=== PATIENT | male | born 1960 ===

== ENCOUNTER 2023-06-17 09:42 | Emergency (ER) | payer MEDICAID, SELFPAY ==
[2023-06-17 09:54] VITALS: BP 117/75; PULSE 85; RESP 14; TEMP 36.9; O2SAT 98; BMI 23.7
--- NOTE | 2023-06-17 10:08 | PC.NURSE ---
patient has photo of medications however unable to see name of prescriptions. unable to state which medications he needs refilled.
--- NOTE | 2023-06-17 10:17 | ED_ITS ---
HPI - General Adult General Chief complaint: General Medical Stated complaint: medication Time Seen by Provider: 06/17/23 10:17 Source: patient Mode of arrival: ambulatory Limitations: no limitations History of Present Illness HPI narrative: Patient is a 62-year-old male with reported history of dementia presenting to the emergency department requesting refill of venlafaxine. He states that he moved to this area from [place] 1 month ago with his son. He states that he still has 3 refills left of this medication but is unsure how to refill this as he was previously having it filled in [place] at [facility]. He shows a picture of his pill bottle on his phone. States that he take several other medications but is unsure of the names, states he also has refills available for these medications as well. He denies any physical complaints. MD complaint: medication refill Associated symptoms: denies other symptoms Related Data Allergies Allergy/AdvReac Type Severity Reaction Status Date / Time No Known Allergies Allergy Verified 06/17/23 09:55 Review of Systems Review of Systems: As per HPI. Yes all other systems are reviewed and are negative Constitutional: Constitutional: Reports as per HPI [facility] Social History Social History Advance Directives: No Physical Exam ED Vital Signs: Vital Signs - 24 hr 06/17/23 09:54 Temperature 98.5 F Pulse Rate 85 Respiratory Rate 14 Blood Pressure 117/75 Pulse Oximetry 98 Oxygen Delivery Method Room Air BMI result Body Mass Index 23.7 Vital signs have been reviewed and appear to be correct. Blood pressure normal. Heart rate normal. Respiratory rate normal. Temperature normal. Oxygen saturation normal. Const General: cooperative, healthy appearing and no acute distress Orientation/consciousness: oriented to person, oriented to place, oriented to time and patient oriented x3 Limitations: no limitations [facility] Head: Yes normocephalic and Yes atraumatic Ears: external ears normal General nose exam: Normal external nose present Face and sinus: Yes face symmetric Mouth: oropharynx normal and moist mucous membranes Throat: Yes uvula midline Eyes Pupils: Equal, round and reactive pupils present Neck Neck: Yes normal visual inspection and Yes supple Resp Effort & Inspection: normal respiratory effort and able to speak in complete sentences Auscultation: clear to auscultation bilaterally Cardio Rate: regular rate Rhythm: regular rhythm Heart sounds: S1 normal heart sound present and S2 normal heart sound present GI Palpation (GI): Soft to palpation and nontender Auscultation: normoactive bowel sounds General: Yes no CVA tenderness Back/Spine/Pelvis Back: no CVA tenderness Skin General skin exam: elasticity normal and turgor normal Neuro General: oriented to person, oriented to place, oriented to time, patient oriented x3, moves all extremities, no focal motor deficits and CN's II-XI intact bilaterally Cranial nerves: Yes Equal, round and reactive pupils present Cognition (Neuro): normal cognition Extrem General: Yes full ROM, Yes no pedal edema and Yes no calf tenderness Psych Mental Status: mental status grossly normal Affect: normal affect Thought process: Normal thought process present Medical Decision Making Medical Decision Making [facility] Narrative: Patient is a 62-year-old male with reported history of dementia presenting to the emergency department requesting refill of venlafaxine. On exam patient is awake, A+Ox3, VS WNL, afebrile, normal neurological exam without focal deficits, physical exam findings as above. Given reported symptoms and physical exam findings, initial differential includes medication refill needed. Contacted [facility] in [place] and spoke with pharmacy staff who is unable to locate any record for patient in their system. Unable to review HIDE OR SKIN BUFFER information for this patient as prescription filled in [place]. Will refer patient to the [facility], as this is the closest in the area. Patient also provided with resources for finding new PCP in this area. Return precautions discussed. Patient verbalized understanding of and agreement with plan. Differential Diagnosis Differential Diagnoses: The differential diagnosis associated with the presentat ion includes As per [facility] External Record Review External record reviewed: Inpatient record, Office record and Outpatient record Discharge Plan Discharge Clinical Impression: Encounter for medication refill Patient Disposition: Home, Self-Care Additional Instructions: You presented to the emergency department today seeking a prescription for medication. You have 3 remaining refills of this medication available through [facility] pharmacy. The closest [facility] pharmacy is in [facility]. The address is [address] [place] [address] in [facility]. Please go there to refill your prescription. Return to the emergency department with any other new or concerning symptoms. Print Language: Peruvian
[2023-06-17 11:08] VITALS: BP 117/75; PULSE 85; RESP 14; TEMP 36.9; O2SAT 98
== END 2023-06-17 11:08 | disposition home or self-care (01) ==
PROVIDERS: Emergency Provider Emergency Medicine; PCP Family Medicine
DX: Z76.0 Encounter for issue of repeat prescription (principal); Z79.899 Other long term (current) drug therapy
CPT/HCPCS: 99282

== ENCOUNTER 2023-07-26 08:01 | Outpatient (AMB) | payer OTHER, SELFPAY ==
--- NOTE | 2023-07-26 08:13 | A.OFFPC_ITS ---
Vital Signs 07/26/23 08:26 Height 5 ft 5.75 in Weight 148 lb 8 oz BMI 24.1 BP 126/68 Blood Pressure Location Rt brachial Position Sitting Respiration 14 Pulse 90 Pulse Source Pulse Oximeter Temp 97.5 F Temp Source Oral Pulse Oximetry (%) 98 Oxygen Delivery Method Room Air Intake Visit Reasons: Establish Care/ Dementia Intake Note: New patient visit. He filled out packet and release form for medical records and it's not in chart. Would of been 06/22/2023. Went to [facility] two weeks ago. He requested Dr Ace as the PCP, he would likea appt today to be ER follow up. Accompanied by: Son Allergies No Known Allergies Allergy (Verified 07/26/23 09:03) Medication List - Last Reconciled 07/26/23 by Darby Zayas, [employer]OU[employer] CARPENTER-BC donepezil 10 mg PO DAILY trazodone 50 mg PO BEDTIME venlafaxine ER 75 mg PO DAILY Tobacco use date assessed: 07/26/23 Dental Screening Dental Screen Date: 07/26/23 Did you have a dental visit in the last 12 months?: No Did you have a dental problem in the last 6 months where you did not have access to dental care?: No Was dental information given to patient?: Yes HPI HPI Comments History of Present Illness Details 62-year-old male with dementia, major de pressive disorder, generalized anxiety disorder, current tobacco use disorder Here today with son to [facility] No medical records History per verbal report only. Dementia dx in [place]. Was living in [place]. Was being ff'd by Neuro. Would like new referral to neuro. Dr Bowie. Placed today. Recently and now living w/ son who is HCP. Son, Benjamin Nathan, reports having the copy and will bring to me. There's a mass in his brain but can not further clarify this detail for me. Cannot work and is working on getting full disability. Was taking more medication then RXd as he was forgetting he took his meds Sons are now managing his meds Patient wants to live on his own. The son feels that he is capable living on his own he just needs support services. Wonders what can be done in regards to getting him more services at home. Current tobacco use, interested in NRT. Requesting patch. [facility] Family History (Updated 07/26/23 @ 08:25 by Na Bob CMA) Other FH: mental illness Substance abuse Social History (Updated 07/26/23 @ 08:25 by Na Bob CMA) Housing: Apartment (With son) Patient Tobacco Use Status: Current everyday Tobacco user Cigarette Packs Per Day: 1 Years Smoked: 40 e-Cigarette/Vaping Use: Never Used Second Hand Smoke Exposure: No Substance Use Type: Marijuana service: No Current occupational status: unemployed Cognitive needs: No Hearing needs: No Vision needs: Yes Questionnaire PHQ-9 Over the last 2 weeks, how often have you been bothered by any of the following problems? 1. Little interest or pleasure in doing things: not at all 2. Feeling down, depressed, or hopeless: nearly every day 3. Trouble falling or staying asleep, or sleeping too much: several days 4. Feeling tired or having little energy: more than half the days 5. Poor appetite or overeating: nearly every day 6. Feeling bad about yourself - or that you are a failure or have let yourself or your family down: nearly every day 7. Trouble concentrating on things, such as reading the newspaper or watching t elevision: more than half the days 8. Moving or speaking so slowly that other people could have noticed. Or the opposite - being so fidgety or restless that you have been moving around a lot more than usual: several days 9. Thoughts that you would be better off or of hurting yourself in some way: not at all Total score: 15 Depression Screening Interpretation: Positive Depression Screening Follow-up: Existing condition Depression Screening Done: Yes 86371 - PHQ-9 Billing: Yes Source: Developed by Drs. Kota Manzo, Kayla Chatterjee, Stanislav Nixon and colleagues, with an educational marcella from [employer] Thrive Questionnaire Date Thrive assessed: 07/26/23 I am a: Parent/Caregiver What is your living situation today?: I have a place to live, but I am worried about losing it in the future Within the past 12 months, did the food you bought not last and you didn't have the money to get more?: Sometimes True Within the past 12 months, did you worry whether your food would run out before you got money to buy more?: Sometimes True Do you have trouble paying for medicines?: No Do you have trouble getting transportation to medical appointments?: No Do you have trouble paying your heating and electricity bill?: No Do you have trouble taking care of your child, family member or friend?: Yes Do you have trouble with day-to-day activities such as bathing, preparing meals, shopping, managing finances, etc.?: Yes Are you currently unemployed and looking for a job?: Yes Are you interested in more education?: No Please select the resources that you would like help with: Housing/Group Home, Food and Daily support Currently or been in a relationship where the following occur: no concerns reported THRIVE Score: 3 AUDIT C Alcohol Use Questionnaire (AUDIT-C) 1. How often do you have a drink containing alcohol?: 2-3 times a week 2. How many drinks containing alcohol do you have on a typical day when you are drinking?: 1 or 2 3. How often do you have six or more drinks on one occasion?: Never Total Score: 3 Score Reviewed/Action Taken: Yes MAXIEN-7 AMB Questionnaire MAXINE-7 Date MAXINE - 7 assessed: 07/26/23 Feeling nervous, anxious, or on edge: 2 = More than half the days Not being able to stop or control worryin = Nearly every day Worrying too much about different things: 3 = Nearly every day Trouble relaxin = More than half the days Being so restless that it is hard to sit still: 2 = More than half the days Becoming easily annoyed or irritable: 2 = More than half the days Feeling afraid as if something awful might happen: 2 = More than half the days Total MAXINE-7 score (0-4 normal; 5-9 mild; 10-14 moderate; 15-21 severe): 16 Source: Developed by Drs. Kota Manzo, Kayla Chatterjee, Stanislav Nixon and colleagues, with an educational marcella from [employer] MAXINE-7 Assessment Billing MAXINE-7 Assessment Tool: MAXINE-7 Assessment 58720 Review of Systems Const All systems reviewed & are unremarkable except as noted in HPI and below Physical exam (Primary Care) Vital Signs: Last Vital Signs Temp 97.5 F 07/26/23 08:26 Pulse 90 07/26/23 08:26 Resp 14 07/26/23 08:26 BP 126/68 06/10/24 08:26 Pulse Ox 98 07/26/23 08:26 Oxygen Delivery Method Room Air 07/26/23 08:26 BMI result Body Mass Index 24.1 Tobacco/Smoking Status: Tobacco use Status Tobacco use date assessed 07/26/23 07/26/23 08:28 Patient Tobacco Use Status Current everyday Tobacco 07/26/23 08:28 e-Cigarette/Vaping Use Never Used 07/26/23 08:28 Are you ready to quit: Yes Tobacco cessation counseling provided: Yes Relapse Prevention: discussed the importance of a supportive environment, discussed extending NRT, discussed negative mood or depression after quitting, weight gain after smoking is common and discussed dietary, exercise and/or lifestyle changes Number of minutes spent counselin CPT code: 75078 - 4-10 Minutes PHQ-9: PHQ-9 Score PHQ-9: Total score 15 07/26/23 10:26 Depression Screening Interpretation: Positive Depression Screening Follow-up: Existing condition Thrive Assessment: Date of Thrive Assessment Date Thrive assessed 07/26/23 07/26/23 09:34 Currently or been in a relationship where the following occur: no concerns reported Advance Care Planning discussion: Exists, not on file Date of discussion: 07/26/23 Who was present: Yamil Benjamin & patient Forms completed: Health Care Proxy and MOLST Time spent: 1-15 minutes, not on file Actual minutes spent: 6 Const Other: Awake alert oriented x3, good historian Accompanied by son Regular rate and rhythm Lung sounds clear to auscultation bilat Assessment and Plan Assessment & Plan (1) Dementia: Comment: Additional medical records we will be needed to further specify the dementia diagnosis. We will continue him on Aricept. Referral placed to Dr. Pantoja per son's request. Code(s): F03.90 - Unspecified dementia, unspecified severity, without behavioral disturbance, psychotic disturbance, mood disturbance, and anxiety Qualifiers: Dementia type: unspecified type Dementia severity: mild Dementia behavioral or psychological symptom: with mood disturbance Qualified Code(s): F03.A3 - Unspecified dementia, mild, with mood disturbance (2) Encounter for screening involving social determinants of health (SDoH): Comment: Refer to nurse navigation. Code(s): Z13.9 - Encounter for screening, unspecified (3) MDD (major depressive disorder), recurrent episode: Comment: Currently maintained on Effexor 75 mg and trazodone. Continue at this time. Code(s): F33.9 - Major depressive disorder, recurrent, unspecified Qualifiers: Major depression episode severity: moderate Qualified Code(s): F33.1 - Major depressive disorder, recurrent, moderate (4) Tobacco use disorder: Comment: Start end NRT. Nicotine patch 21 mcg. Code(s): F17.200 - Nicotine dependence, unspecified, uncomplicated (5) MAXINE (generalized anxiety disorder): Comment: See MDD care plan Code(s): F41.1 - Generalized anxiety disorder Plan This note is constructed using voice recognition software. While every effort has been made to ensure accuracy in mold mover, still errors may have been included Sometimes, these errors may affect the content or meaning of the given sentence . Total time spent caring for the patient today was 45 minutes. This includes time spent before the visit reviewing the chart, time spent during the visit, and time spent after the visit on documentation Orders: Referrals Nurse Navigator Referral Z13.9 - Encounter for screening, unspecified Neurology Referral F03.90 - Unspecified dementia, unspecified severity, without behavioral disturbance, psychotic disturbance, mood disturbance, and anxiety Medications: New trazodone 50 mg PO BEDTIME 90 tabs 0RF venlafaxine ER 75 mg PO DAILY 90 caps 0RF donepezil 10 mg PO DAILY 90 tabs 0RF nicotine (Nicoderm CQ) 1 patch transdermal Q24H 28 ea 0RF Patient Instructions: Recommend calling [employer] for additional services Call [facility] to get a human services case manager to see what additional services he would be eligible for. RTO in a few weeks to [facility] care w/ Dr Ace. Coding Level of Care Code New Pt Level 4 (19836) Diagnoses Mild dementia with mood disturbance, unspecified dementia type F03.A3 Dementia type: unspecified type Dementia severity: mild Dementia behavioral or psychological symptom: with mood disturbance Encounter for screening involving social determinants of health (SDoH) Z13.9 Moderate episode of recurrent major depressive disorder F33.1 Major depression episode severity: moderate Tobacco use disorder F17.200 MAXINE (generalized anxiety disorder) F41.1 Additional Codes MAXINE-7 Assessment Billing - MAXINE-7 Assessment Tool: MAXINE-7 Assessment 45311 ([id number]) Vital Signs *Quality* - CPT code: 43764 - 4-10 Minutes ([id number]) Vital Signs *Quality* - Advance Care Planning discussion: Exists, not on file ([id number]) Vital Signs *Quality* - Time spent: 1-15 minutes, not on file ([id number])
[2023-07-26 08:26] VITALS: BP 126/68; PULSE 90; RESP 14; TEMP 36.4; O2SAT 98; BMI 24.1
== END 2023-07-26 09:23 | disposition home or self-care (01) ==
PROVIDERS: PCP Family Medicine; Visit Provider Nurse Practitioner Family
DX: F03.A3 Unspecified dementia, mild, with mood disturbance (principal); F33.1 Major depressive disorder, recurrent, moderate; F17.210 Nicotine dependence, cigarettes, uncomplicated; F41.1 Generalized anxiety disorder; Z00.00 Encounter for general adult medical examination without abnormal findings
CPT/HCPCS: 1123F; 99204; 99406